=== PATIENT | male | born 1980 | race Caucasian/White ===

== ENCOUNTER 2019-09-04 08:46 | Emergency (ER) | payer MEDICAID ==
[~2019-09-04] VITALS: Ht 185.4 cm; Wt 113.6 kg
[2019-09-04 08:48] VITALS: Ht 185.4 cm; Wt 113.6 kg
[2019-09-04] MEDS ORDERED: TRAZODONE HCL150 MG PO (08:53)
[2019-09-04] MEDS ORDERED: LOVENOX80 MG/0.8 SC (08:53)
[2019-09-04 09:13] LABS: BASOPHILS 0.2 % (0-2); EOSINOPHILS 2.3 % (0-7); HEMATOCRIT 40.5 % (42.0-54.0); IMMATURE GRANULOCYTES 0.5 % (0-5); LYMPHOCYTES 28.6 % (15-50); MCHC 34.6 g/dL (31.0-37.0); MCV 89.6 fL (80.0-100.0); MEAN PLATELET VOLUME 9.4 fL (7.4-10.4); MONOCYTES 8.9 % (2-11); NEUTROPHILS 59.5 % (40-80); PLATELET COUNT 210 10x3/uL (130-400); RBC 4.52 10x6/uL (4.20-6.10); RDW 12.9 % (11.5-14.5); WBC 6.4 10x3/uL (4.8-10.8)
[2019-09-04 09:18] LABS: CALC OSMOLALITY 277 mosm/kg (275-300); CALCIUM 9.2 mg/dL (8.5-10.1); CARBON DIOXIDE 27.5 mmol/L (21.0-32.0); CHLORIDE - SERUM 105 mmol/L (98-107); CREATININE - SERUM 1.1 mg/dL (0.6-1.3); GLUCOSE 99 mg/dL (74-106); POTASSIUM - SERUM 3.9 mmol/L (3.5-5.1); SODIUM 140 mmol/L (136-145); UREA NITROGEN 11 mg/dL (7-18); eGFR NON AFRICAN AMERICAN 79 mL/min (90-120)
[2019-09-04 09:26] LABS: ALBUMIN 3.7 g/dL (3.4-5.0); ALKALINE PHOSPHATASE 103 U/L (46-116); ALT (SGPT) 222 U/L (10-68); BILIRUBIN - TOTAL 0.52 mg/dL (0.2-1.3); PROTEIN - SERUM 7.8 g/dL (6.4-8.2)
[2019-09-04 09:27] LABS: APTT 43.5 SECONDS (22.8-39.4); INR 1.09 (0.85-1.17); PROTIME 13.6 SECONDS (11.6-15.0)
[2019-09-04] MEDS ORDERED: GABAPENTIN300 MG PO (09:34)
[2019-09-04] MEDS ORDERED: SEROQUEL100 MG PO (09:34)
[2019-09-04] MEDS ORDERED: LITHIUM CARBON300 MG PO (09:35)
[2019-09-04] MEDS ORDERED: RANITIDINE HCL150 M1 PO (09:35)
[2019-09-04 11:13] VITALS: BP 120/70
== END 2019-09-04 11:14 | disposition home or self-care (01) ==
LOC: D.ER 08:46
PROVIDERS: Emergency Medicine
DX: M79.604 Pain in right leg (principal); Z86.718 Personal history of other venous thrombosis and embolism